=== PATIENT | female | born 1995 | race Caucasian/White ===

== ENCOUNTER 2023-12-30 19:33 | Emergency (ER) | payer OTHER ==
[~2023-12-30] VITALS: Ht 162.6 cm; Wt 79.5 kg
[2023-12-30 19:35] VITALS: BP 110/63; PULSE 61; RESP 14; TEMP 97.5; O2SAT 99
[2023-12-30 20:14] LABS: BASOPHILS % (AUTO) 0.4 % (0.0-2.0); EOSINOPHILS # (AUTO) 0.1 K/uL (0-0.4); EOSINOPHILS % (AUTO) 0.9 % (0.0-4.0); HEMATOCRIT 39.8 % (36-48); HEMOGLOBIN 12.8 g/dL (12.0-16.0); LYMPHOCYTES # (AUTO) 2.5 K/uL (2.5-16.5); LYMPHOCYTES % (AUTO) 25.2 % (20.5-51.1); MEAN CORPUSCULAR HEMOGLOBIN 26 pg (27-31); MEAN CORPUSCULAR HGB CONC 32 g/dL (33-37); MEAN CORPUSCULAR VOLUME 78.8 fL (80-94); MONOCYTES # (AUTO) 0.7 K/uL (0.8-1.0); NEUTROPHILS # (AUTO) 6.5 K/uL (1.8-7.7); NEUTROPHILS % (AUTO) 66.5 % (42.2-75.2); PLATELET COUNT (AUTO) 262 K/uL (140-450); RED BLOOD CELL COUNT(AUTO) 5.04 MIL/uL (4.20-5.40); RED CELL DISTRIBUTION WIDTH 16.4 % (11.6-13.7); WHITE BLOOD COUNT (AUTO) 9.7 K/uL (4.8-10.8)
[2023-12-30 20:32] LABS: ANION GAP 14.7 (8-16); CALCIUM 8.9 mg/dL (8.5-10.1); CARBON DIOXIDE 22.5 mmol/L (21-32); CREATININE 0.8 mg/dL (0.6-1.3); POTASSIUM 3.2 mmol/L (3.5-5.1)
[2023-12-30] MEDS: KETOROLAC 30 MG/ML VIAL IVP ONE ×2 (20:32→23:05)
[2023-12-30] MEDS: ONDANSETRON 4 MG/2 ML VIAL IVP ONE (20:33)
[2023-12-30] MEDS: NACL 0.9% 1,000 ML IV SCH (20:35)
[2023-12-30] MEDS: ACETAMINOPHEN EXTRA STRENGTH 500 MG TAB PO ONE (20:37)
[2023-12-30 20:38] LABS: ALBUMIN 3.8 g/dL (3.4-5.0); BILIRUBIN,DIRECT 0.3 mg/dL (0.0-0.3); TOTAL BILIRUBIN 0.5 mg/dL (0.0-1.0); TOTAL PROTEIN, SERUM 7.3 g/dL (6.4-8.2)
[2023-12-30] MEDS ORDERED: ONDA-188 PO (23:00)
[2023-12-30 23:30] VITALS: BP 121/70; PULSE 69; RESP 16; TEMP 98; O2SAT 100
== END 2023-12-30 23:31 | disposition home or self-care (01) ==
LOC: MED 19:33
DX: K80.50 Calculus of bile duct without cholangitis or cholecystitis without obstruction (principal); Z79.899 Other long term (current) drug therapy
CPT/HCPCS: 36415; 76705; 80048; 80076; 81025; 83690; 84703; 85025; 96361; 96374; 96375; 96376; 99285; J1885; J2405; J7030; Q0092